=== PATIENT | male | born 1945 | race Two or more races ===

== ENCOUNTER 2022-04-23 07:02 | Day surgery (SDC) | payer OTHER ==
[~2022-04-23] VITALS: Ht 167.6 cm; Wt 74.8 kg
[~2022-04-23 07:02] MED LIST: LEVO25TA6 PO
[2022-04-23] MEDS ORDERED: ROCURONIUM 10MG/ML 10ML VIAL IV ONE (07:19)
[2022-04-23] MEDS ORDERED: SUCCINYLCHOLINE CHLORIDE 20 MG/ML 10ML VIAL IV ONE (07:19)
[2022-04-23] MEDS ORDERED: LIDOCAINE 1%HCL (LOCAL ANESTH) 10 ML MDV ONE (07:21)
[2022-04-23] MEDS ORDERED: HYDROmorphone HCL 2 MG/ML VL/or syr ONE ×2 (07:31→13:05)
[2022-04-23] MEDS ORDERED: fentaNYL CITRATE 5 ML ONE (07:31)
[2022-04-23] MEDS ORDERED: MIDAZOLAM HCL 2MG/2ML 2ml VIAL (1mg/ml) ONE (07:31)
[2022-04-23] MEDS ORDERED: NEOSTIGMINE 1 MG/ML INJ (10mg/10ML VIAL) ONE (07:32)
[2022-04-23] MEDS ORDERED: DexAMETHasone SOD PHOS 10MG/1ML VIAL INJ ONE (07:32)
[2022-04-23] MEDS ORDERED: PROPOFOL 10 MG/ML 20 ML IV ONE (07:32)
[2022-04-23] MEDS ORDERED: SODIUM CHLORIDE LOCK 50 ML ONE (07:32)
[2022-04-23] MEDS ORDERED: GLYCOPYRROLATE 0.2 MG/ML 1ML VIAL ONE (07:32)
[2022-04-23] MEDS ORDERED: ONDANSETRON HCL 4 MG/2 ML VIAL ONE (07:32)
[2022-04-23] MEDS ORDERED: MORPHINE SULFATE 4 MG/ML SYR/VIAL IV PRN (07:45)
[2022-04-23] MEDS ORDERED: METOCLOPRAMIDE HCL 5MG/ml INJ 2ml VIAL IV PRN (07:45)
[2022-04-23] MEDS ORDERED: HYDROmorphone HCL 2 MG/ML VL/or syr IV PRN (07:45)
[2022-04-23] MEDS ORDERED: ceFAZolin 1GM/50ML 100 ML IV ONE (08:29)
[2022-04-23] MEDS: HYDROmorphone HCL 2 MG/ML VL/or syr IV PRN ×3 (13:10→13:45)
[2022-04-23 14:40] VITALS: BP 154/80
== END 2022-04-23 15:02 | disposition home or self-care (01) ==
LOC: SUR 07:02
PROVIDERS: ATTEND Surgery
DX: K40.20 Bilateral inguinal hernia, without obstruction or gangrene, not specified as recurrent (principal)
CPT/HCPCS: 49650; 86850; 86900; 86901; C1713; C1781; J0330; J0690; J1100; J1170; J2001; J2250; J2405; J2704; J3010; J7030; S2900; U0003